=== PATIENT | female | born 1970 | race African-American/Black ===

== ENCOUNTER 2017-11-21 00:53 | Emergency (ER) | payer MEDICARE, MEDICAID ==
[~2017-11-21] VITALS: Ht 172.7 cm; Wt 92.0 kg
[~2017-11-21 00:53] MED LIST: CLON2TAB16 PO; FESO PO; FLUO40CA9 PO; IBUP-1223 PO; OMEP40CA6; ONDA4TAB7 PO; OXYC-302 PO; OXYC-307 PO; SENN-25 PO; SUMA100T4 PO; TOPOMAX; ZOLP-413 PO
[2017-11-21 00:54] VITALS: BP 133/88
[2017-11-21] MEDS ORDERED: SODIUM CHLORIDE 0.9% 1,000ML IVBOLUS ONE (01:30)
[2017-11-21] MEDS ORDERED: PROCHLORPERAZINE 5 MG/ML, 2ML IVPush ONE (01:30)
[2017-11-21] MEDS ORDERED: KETOROLAC 30 MG/1 ML IVPush ONE (01:30)
[2017-11-21] MEDS ORDERED: KETOROLAC 30 MG/1 ML ONE (01:57)
[2017-11-21] MEDS ORDERED: PROCHLORPERAZINE 5 MG/ML, 2ML ONE (01:57)
== END 2017-11-21 03:58 | disposition home or self-care (01) ==
LOC: ED 01:26
DX: G43.009 Migraine without aura, not intractable, without status migrainosus (principal); F31.9 Bipolar disorder, unspecified; F20.9 Schizophrenia, unspecified; Z88.0 Allergy status to penicillin
CPT/HCPCS: 96365; 96368; 99284; J0780; J1885; J7030

== ENCOUNTER 2018-10-30 15:51 | Emergency (ER) | payer MEDICARE, MEDICAID ==
[~2018-10-30] VITALS: Ht 172.7 cm; Wt 82.7 kg
[2018-10-30 17:19] LABS: BASOPHILS # (AUTO) 0.03 x10^3/uL (0-0.1); BASOPHILS % (AUTO) 1 % (0-1); EOSINOPHILS # (AUTO) 0.11 x10^3/uL (0-0.4); EOSINOPHILS % (AUTO) 2 % (1-7); LYMPHOCYTES # (AUTO) 1.86 x10^3/uL (1-3.4); LYMPHOCYTES % (AUTO) 39 % (22-44); MD NO; MEAN CORPUSCULAR HEMOGLOBIN 33.1 pg (27.0-34.8); MEAN CORPUSCULAR HGB CONC 33.8 g/dL (32.4-35.8); MEAN CORPUSCULAR VOLUME 97.9 fL (80-100); MEAN PLATELET VOLUME 8.1 fL (7.4-10.4); MONOCYTES # (AUTO) 0.33 x10^3/uL (0.2-0.8); MONOCYTES % (AUTO) 7 % (2-9); NEUTROPHILS # (AUTO) 2.42 x10^3/uL (1.8-6.8); NEUTROPHILS % (AUTO) 51 % (42-75); PLATELET COUNT 299 x10^3/uL (130-400); RED BLOOD COUNT 4.47 x10^6/uL (3.82-5.3); RED CELL DISTRIBUTION WIDTH 13.6 % (9.6-15.2)
[2018-10-30 17:30] LABS: ANION GAP 7 mmol/L (5-15); CALCIUM 9.6 mg/dL (8.5-10.1); CHLORIDE 111 mmol/L (98-107)
[2018-10-30 17:35] LABS: ALANINE AMINOTRANSFERASE 79 U/L (12-78); ALKALINE PHOSPHATASE 63 U/L (45-117); BILIRUBIN,TOTAL 0.4 mg/dL (0.2-1.0); CREATININE 0.97 mg/dL (0.55-1.02); TOTAL PROTEIN 8.1 g/dL (6.4-8.2)
[2018-10-30] MEDS ORDERED: MORPHINE SULFATE 4 MG/ML, 1ML ONE (19:18)
[2018-10-30] MEDS ORDERED: ONDANSETRON 2MG/ML, 2ML ONE (19:18)
[2018-10-30] MEDS ORDERED: SODIUM CHLORIDE FLUSH 10ML SYR IVF ONE (19:30)
[2018-10-30] MEDS ORDERED: MORPHINE SULFATE 4 MG/ML, 1ML IVPush PRN (19:30)
[2018-10-30] MEDS ORDERED: ONDANSETRON 2MG/ML, 2ML IVPush ONE (19:30)
[2018-10-30 19:36] LABS: MICROSCOPIC INDICATED
[2018-10-30 20:18] LABS: CULTURE INDICATED? NO
[2018-10-30] MEDS ORDERED: OMNIPAQUE 350 MG/ML, 100ML BOTTLE ONE (20:31)
[2018-10-30 21:03] VITALS: BP 142/93
== END 2018-10-30 21:11 | disposition home or self-care (01) ==
LOC: ED 20:31
DX: K80.20 Calculus of gallbladder without cholecystitis without obstruction (principal); R10.32 Left lower quadrant pain; G43.909 Migraine, unspecified, not intractable, without status migrainosus; F31.9 Bipolar disorder, unspecified; Z90.710 Acquired absence of both cervix and uterus
CPT/HCPCS: 36415; 74021; 74177; 80053; 81001; 85025; 96374; 96375; 99284; J2405; Q9967

== ENCOUNTER 2019-02-14 21:11 | Emergency (ER) | payer MEDICARE, MEDICAID ==
[~2019-02-14] VITALS: Ht 172.7 cm; Wt 81.6 kg
[2019-02-14 21:22] VITALS: BP 133/77
--- NOTE | 2019-02-15 00:25 | NUR ---
PATIENT CALLED IN THE LOBBY, NO ANSWER.
--- NOTE | 2019-02-15 00:45 | NUR ---
2nd call. no answer
--- NOTE | 2019-02-15 01:07 | NUR ---
3rd call. no answer. not in the lobby. will discharge patient as LWBS
== END 2019-02-15 01:10 | disposition left against medical advice (07) ==
LOC: ED 02-15 01:00
DX: G43.909 Migraine, unspecified, not intractable, without status migrainosus (principal); G43.C1 Periodic headache syndromes in child or adult, intractable; F20.9 Schizophrenia, unspecified; Z90.710 Acquired absence of both cervix and uterus; Z90.721 Acquired absence of ovaries, unilateral
CPT/HCPCS: 99281

== ENCOUNTER 2019-10-22 11:26 | Emergency (ER) | payer MEDICARE ==
[~2019-10-22] VITALS: Ht 172.7 cm; Wt 76.5 kg
[~2019-10-22 11:26] MED LIST changes: +OMEP40CA42; -OMEP40CA6
[2019-10-22 11:44] VITALS: BP 125/78
[2019-10-22] MEDS ORDERED: KETOROLAC 30 MG/1 ML IM ONE (12:30)
[2019-10-22] MEDS ORDERED: DIAZEPAM 5 MG TABLET PO ONE (12:30)
[2019-10-22] MEDS ORDERED: KETOROLAC 30 MG/1 ML ONE (12:36)
[2019-10-22] MEDS ORDERED: DIAZEPAM 5 MG TABLET ONE (12:36)
[2019-10-22] MEDS ORDERED: OXYcodone/APAP 5/325MG TABLET ONE (13:14)
[2019-10-22] MEDS ORDERED: OXYcodone/APAP 5/325MG TABLET PO ONE (13:30)
== END 2019-10-22 13:52 | disposition home or self-care (01) ==
LOC: ED 13:46
DX: S39.012A Strain of muscle, fascia and tendon of lower back, initial encounter (principal); E11.9 Type 2 diabetes mellitus without complications; M51.26 Other intervertebral disc displacement, lumbar region; Z90.710 Acquired absence of both cervix and uterus; Z90.722 Acquired absence of ovaries, bilateral; Z88.0 Allergy status to penicillin; X58.XXXA Exposure to other specified factors, initial encounter; Y93.89 Activity, other specified; Y92.89 Other specified places as the place of occurrence of the external cause; Y99.8 Other external cause status
CPT/HCPCS: 96372; 99283; J1885

== ENCOUNTER 2019-12-01 13:10 | Emergency (ER) | payer MEDICARE, MEDICAID ==
[~2019-12-01] VITALS: Ht 172.7 cm; Wt 75.3 kg
[2019-12-01] MEDS ORDERED: LIDOCAINE-MPF 1%, 5ML ONE (13:45)
[2019-12-01] MEDS ORDERED: LIDOCAINE 1%, 10ML INFIL ONE (14:00)
[2019-12-01] MEDS ORDERED: TRIAMCINOLONE ACETONIDE 40 MG/ML, 1ML IM ONE (14:00)
--- NOTE | 2019-12-01 14:09 | NUR ---
pt to ed from home. c/o R upper bicep pain 08/23, tendonitis sounding. c/o pain in bladder and incr freq. ua sent. ousmane shot by julian. call elyssa in reach.a s
[2019-12-01 14:13] VITALS: BP 111/73
[2019-12-01 14:31] LABS: CULTURE INDICATED? YES; MICROSCOPIC INDICATED
== END 2019-12-01 14:52 | disposition home or self-care (01) ==
LOC: ED 14:43
DX: M75.22 Bicipital tendinitis, left shoulder (principal); N39.0 Urinary tract infection, site not specified; Z90.710 Acquired absence of both cervix and uterus; Z90.721 Acquired absence of ovaries, unilateral
CPT/HCPCS: 81001; 87086; 99283

== ENCOUNTER 2019-12-06 12:43 | Outpatient (CLI) | payer MEDICARE, MEDICAID | END 2019-12-06 23:59 | disposition home or self-care (01) | LOC: LAB 12:43 | PROVIDERS: ATTEND Obstetrics & Gynecology | DX: Z02.9 Encounter for administrative examinations, unspecified (principal) ==

== ENCOUNTER 2019-12-26 14:20 | Day surgery (SDC) | payer MEDICARE, MEDICAID ==
[~2019-12-26] VITALS: Ht 172.7 cm; Wt 76.0 kg
[~2019-12-26 14:20] MED LIST changes: +CEFAZOLIN 1,000 MG ONE; +PROPOFOL 10 MG/ML, 20ML ONE; +ROCURONIUM 10MG/ML,5ML ONE; +SUGAMMADEX 200 MG/2 ML IVPush ONE
[2019-12-26 14:58] VITALS: BP 131/94
[2019-12-26] MEDS ORDERED: LACTATED RINGERS 1,000 ML IV SCH (15:08)
[2019-12-26] MEDS ORDERED: MIDAZOLAM 1 MG/ML, 2ML ONE ×2 (15:11→16:50)
[2019-12-26] MEDS ORDERED: FENTANYL PF 250 MCG/5ML ONE ×2 (15:11→16:51)
[2019-12-26] MEDS ORDERED: GABAPENTIN PO (15:12)
[2019-12-26] MEDS ORDERED: TRAZADONE PO (15:12)
[2019-12-26] MEDS ORDERED: CELEXA PO (15:12)
[2019-12-26] MEDS ORDERED: TIZANIDINE PO (15:17)
[2019-12-26] MEDS ORDERED: PHENTERMINE PO (15:17)
[2019-12-26] MEDS ORDERED: IRON PO (15:17)
[2019-12-26 15:56] LABS: BASOPHILS # (AUTO) 0.03 x10^3/uL (0-0.1); BASOPHILS % (AUTO) 1 % (0-1); EOSINOPHILS # (AUTO) 0.12 x10^3/uL (0-0.4); EOSINOPHILS % (AUTO) 3 % (1-7); LYMPHOCYTES % (AUTO) 47 % (22-44); MD NO; MEAN CORPUSCULAR HEMOGLOBIN 32.5 pg (27.0-34.8); MEAN CORPUSCULAR HGB CONC 33.1 g/dL (32.4-35.8); MEAN CORPUSCULAR VOLUME 98.3 fL (80-100); MEAN PLATELET VOLUME 7.5 fL (7.4-10.4); MONOCYTES # (AUTO) 0.18 x10^3/uL (0.2-0.8); MONOCYTES % (AUTO) 5 % (2-9); NEUTROPHILS % (AUTO) 44 % (42-75); PLATELET COUNT 271 x10^3/uL (130-400); RED BLOOD COUNT 4.17 x10^6/uL (3.82-5.3); RED CELL DISTRIBUTION WIDTH 13.8 % (9.6-15.2)
[2019-12-26] MEDS ORDERED: BUPIVACAINE/PF 0.25% ONE (16:07)
[2019-12-26] MEDS ORDERED: EPINEPHRINE 1 MG/ML, 1ML ONE (16:08)
[2019-12-26] MEDS ORDERED: INTERCEED 3 X 4 INCH DRESSING ONE (16:08)
[2019-12-26] MEDS ORDERED: ONDANSETRON 2MG/ML, 2ML ONE (16:52)
[2019-12-26] MEDS ORDERED: DEXAMETHASONE 4 MG/ML, 1ML ONE (16:52)
[2019-12-26] MEDS ORDERED: ALBUTEROL SULFATE 2.5 MG/3 ML NPPB PRN (17:30)
[2019-12-26] MEDS ORDERED: METOCLOPRAMIDE 5 MG/ML, 2ML IV PRN (17:30)
[2019-12-26] MEDS ORDERED: KETOROLAC 30 MG/1 ML IV PRN (17:30)
[2019-12-26] MEDS ORDERED: MEPERIDINE/PF 25MG/0.5ML IVPush PRN (17:30)
[2019-12-26] MEDS ORDERED: LABETALOL 5MG/ML, 20ML IV PRN (17:30)
[2019-12-26] MEDS ORDERED: hydrALAzine 20 MG/ML, 1ML IV PRN (17:30)
[2019-12-26] MEDS ORDERED: PROMETHAZINE 25 MG/ML, 1ML IV PRN (17:30)
[2019-12-26] MEDS ORDERED: FENTANYL PF 100 MCG/2ML IV PRN (17:30)
[2019-12-26] MEDS ORDERED: HYDROmorphone 1 MG/ML, 1ML INJ IV PRN (17:30)
[2019-12-26] MEDS ORDERED: OXYcodone 5 MG/5 ML ORAL.SOL UDC PO PRN (17:30)
[2019-12-26] MEDS ORDERED: ONDANSETRON 2MG/ML, 2ML IVPush PRN (17:30)
[2019-12-26] MEDS ORDERED: DIAZEPAM 5 MG/ML, 2ML IV PRN ×2 (17:30)
[2019-12-26] MEDS ORDERED: MEPERIDINE/PF 25MG/ML,1ML ONE (18:01)
[2019-12-26] MEDS ORDERED: OXYcodone 5 MG/5 ML ORAL.SOL UDC ONE (18:01)
[2019-12-26] MEDS ORDERED: FENTANYL PF 100 MCG/2ML ONE (18:24)
== END 2019-12-26 20:20 | disposition home or self-care (01) ==
LOC: OR 14:20 → 3WST 19:15 → OR 20:20
PROVIDERS: ATTEND Obstetrics & Gynecology
DX: R10.2 Pelvic and perineal pain (principal); Z88.0 Allergy status to penicillin; Z88.2 Allergy status to sulfonamides; Z90.710 Acquired absence of both cervix and uterus; Z90.721 Acquired absence of ovaries, unilateral; Z90.79 Acquired absence of other genital organ(s)
CPT/HCPCS: 36415; 49320; 85025; J0171; J0690; J1100; J2175; J2250; J2405; J2704; J3010; J3490; J7120; G0378

== ENCOUNTER 2020-06-23 13:47 | Emergency (ER) | payer MEDICARE, MEDICAID ==
[~2020-06-23] VITALS: Ht 172.7 cm; Wt 81.3 kg
[~2020-06-23 13:47] MED LIST changes: -CEFAZOLIN 1,000 MG ONE; +CELEXA PO; +GABAPENTIN PO; +IRON PO; +PHENTERMINE PO; -PROPOFOL 10 MG/ML, 20ML ONE; -ROCURONIUM 10MG/ML,5ML ONE; -SUGAMMADEX 200 MG/2 ML IVPush ONE; +TIZANIDINE PO; +TRAZADONE PO
[2020-06-23 13:52] VITALS: BP 115/83
== END 2020-06-23 16:44 | disposition home or self-care (01) ==
LOC: ED 16:38
DX: S16.1XXA Strain of muscle, fascia and tendon at neck level, initial encounter (principal); M25.512 Pain in left shoulder; G43.909 Migraine, unspecified, not intractable, without status migrainosus; X58.XXXA Exposure to other specified factors, initial encounter; Y93.89 Activity, other specified; Y92.89 Other specified places as the place of occurrence of the external cause; Y99.8 Other external cause status
CPT/HCPCS: 72050; 99283

== ENCOUNTER 2020-09-12 11:08 | Emergency (ER) | payer MEDICARE, MEDICAID ==
[~2020-09-12] VITALS: Ht 172.7 cm; Wt 81.2 kg
[2020-09-12] MEDS ORDERED: HYDROcodone/APAP 5/325 TABLET PO ONE (12:00)
[2020-09-12] MEDS ORDERED: ONDANSETRON ODT 4 MG ONE (12:00)
[2020-09-12] MEDS ORDERED: CYCLOBENZAPRINE 10 MG TABLET ONE (12:00)
[2020-09-12] MEDS ORDERED: ONDANSETRON ODT 4 MG PO ONE (12:00)
[2020-09-12] MEDS ORDERED: KETOROLAC 30 MG/1 ML IM ONE (12:00)
[2020-09-12] MEDS ORDERED: CYCLOBENZAPRINE 10 MG TABLET PO ONE (12:00)
[2020-09-12] MEDS ORDERED: KETOROLAC 30 MG/1 ML ONE (12:00)
[2020-09-12] MEDS ORDERED: HYDROcodone/APAP 5/325 TABLET ONE (12:01)
[2020-09-12 12:28] VITALS: BP 128/94
--- NOTE | 2020-09-12 12:29 | NUR ---
PT BACK FROM IMAGING, MEDICATED PER MAR. VSS
--- NOTE | 2020-09-12 12:55 | NUR ---
REPORT FROM [facility]
--- NOTE | 2020-09-12 13:12 | NUR ---
Patient/Caregiver given discharge instructions and they have confirmed that they understand the instructions. Patient ambulatory with steady gait.
== END 2020-09-12 13:14 | disposition home or self-care (01) ==
LOC: ED 12:52
DX: S39.012A Strain of muscle, fascia and tendon of lower back, initial encounter (principal); Z90.710 Acquired absence of both cervix and uterus; Z90.721 Acquired absence of ovaries, unilateral; X58.XXXA Exposure to other specified factors, initial encounter; Y93.89 Activity, other specified; Y92.89 Other specified places as the place of occurrence of the external cause; Y99.8 Other external cause status
CPT/HCPCS: 72110; 96372; 99284; J1885; Q0162

== ENCOUNTER 2020-10-31 15:14 | Emergency (ER) | payer MEDICARE, MEDICAID ==
[~2020-10-31] VITALS: Ht 172.7 cm; Wt 87.0 kg
[2020-10-31] MEDS ORDERED: METHOCARBAMOL 750 MG TABLET PO ONE (16:30)
[2020-10-31] MEDS ORDERED: HYDROcodone/APAP 5/325 TABLET PO ONE (16:30)
[2020-10-31] MEDS ORDERED: KETOROLAC 30 MG/1 ML IM ONE (16:30)
[2020-10-31] MEDS ORDERED: METHOCARBAMOL 750 MG TABLET ONE (17:23)
[2020-10-31] MEDS ORDERED: HYDROcodone/APAP 5/325 TABLET ONE (17:23)
[2020-10-31] MEDS ORDERED: KETOROLAC 30 MG/1 ML ONE (17:23)
[2020-10-31 17:29] VITALS: BP 143/118
--- NOTE | 2020-10-31 17:32 | NUR ---
Patient given discharge instructions and they have confirmed that they understand the instructions. Patient ambulatory with steady gait.
--- NOTE | 2020-10-31 17:35 | NUR ---
PT REPORTS HAD A RIDE HOME.
--- NOTE | 2020-10-31 17:35 | NUR ---
PER YELENA CHRISTINA OK TO DC PT W/ BP. PT TO F/U OUTPATIENT.
== END 2020-10-31 17:50 | disposition home or self-care (01) ==
LOC: ED 17:07
DX: G89.29 Other chronic pain (principal); M54.2 Cervicalgia; M54.5 Low back pain; M54.6 Pain in thoracic spine
CPT/HCPCS: 96372; 99283; J1885

== ENCOUNTER 2020-11-11 09:24 | Emergency (ER) | payer MEDICARE, MEDICAID ==
[~2020-11-11] VITALS: Ht 172.7 cm; Wt 87.8 kg
[2020-11-11 09:26] VITALS: BP 159/84
== END 2020-11-11 11:06 | disposition home or self-care (01) ==
LOC: ED 10:30
DX: S93.492A Sprain of other ligament of left ankle, initial encounter (principal); G43.909 Migraine, unspecified, not intractable, without status migrainosus; Z90.710 Acquired absence of both cervix and uterus; Z90.721 Acquired absence of ovaries, unilateral; X58.XXXA Exposure to other specified factors, initial encounter; Y93.89 Activity, other specified; Y92.009 Unspecified place in unspecified non-institutional (private) residence as the place of occurrence of the external cause; Y99.8 Other external cause status
CPT/HCPCS: 99283

== ENCOUNTER 2021-02-13 11:58 | Emergency (ER) | payer MEDICARE, MEDICAID ==
[~2021-02-13] VITALS: Ht 172.7 cm; Wt 86.9 kg
[~2021-02-13 11:58] MED LIST changes: -OXYC-302 PO; -OXYC-307 PO; +OXYC-380 PO; +OXYC1TAB14 PO
--- NOTE | 2021-02-13 12:10 | NUR ---
PATIENT AMBULATED TO BATHROOM WITH STEADY GAIT TO LEAVE URINE SAMPLE.
--- NOTE | 2021-02-13 12:15 | NUR ---
PATIENT CHIEF C/O ABD PAIN, PAINFUL URINATION AND URINARY FREQUENCY X1 DAY. PATIENT REPORTS WHITE VAGINAL DISCHARGE WELL. DENIES FEVER, NO RECENT UNPROTECTED SEX. ERPA AT BEDSIDE FOR EVALUATION. URINE SAMPLE COLLECTED AND SENT TO LAB.
[2021-02-13 12:33] LABS: MICROSCOPIC AUTO
[2021-02-13 12:35] LABS: BASOPHILS % (AUTO) 1 % (0-1); EOSINOPHILS % (AUTO) 0 % (1-7); LYMPHOCYTES % (AUTO) 32 % (22-44); MEAN CORPUSCULAR HEMOGLOBIN 32.1 pg (27.0-34.8); MEAN PLATELET VOLUME 7.8 fL (7.4-10.4); MONOCYTES % (AUTO) 6 % (2-9); NEUTROPHILS % (AUTO) 61 % (42-75); PLATELET COUNT 307 x10^3/uL (130-400); RED BLOOD COUNT 4.39 x10^6/uL (3.82-5.3); RED CELL DISTRIBUTION WIDTH 13.4 % (9.6-15.2)
[2021-02-13 12:38] LABS: MD NO
[2021-02-13 12:45] LABS: ALBUMIN 4.2 g/dL (3.4-5.0); ANION GAP 6 mmol/L (5-15); CALCIUM 10.2 mg/dL (8.5-10.1); CHLORIDE 111 mmol/L (98-107)
[2021-02-13 13:06] LABS: CLUE CELLS NONE SEEN (NONE SEEN); WET PREP WBCS NONE SEEN (FEW)
--- NOTE | 2021-02-13 13:33 | NUR ---
PATIENT SITTING IN [facility] ON PHONE, JORGEN, VSS, NO FURTHER NEEDS AT THIS TIME, CALL LIGHT WITHIN REACH. WAITING FOR TEST RESULTS.
[2021-02-13 13:35] VITALS: BP 145/102
--- NOTE | 2021-02-13 13:53 | NUR ---
ERMD AT BEDSIDE TO DISCUSS POC.
--- NOTE | 2021-02-13 14:12 | NUR ---
Patient given discharge instructions and they have confirmed that they understand the instructions. Patient stable and ambulatory with steady gait from ED to private vehicle.
== END 2021-02-13 14:13 | disposition home or self-care (01) ==
LOC: ED 12:27
DX: R30.0 Dysuria (principal); G43.909 Migraine, unspecified, not intractable, without status migrainosus; Z88.0 Allergy status to penicillin; Z88.2 Allergy status to sulfonamides
CPT/HCPCS: 36415; 80048; 81001; 82040; 85025; 87210; 87491; 87591; 87808; 99284